=== PATIENT | female | born 1995 | race Caucasian/White ===

== ENCOUNTER 2019-07-09 20:23 | Emergency (ER) | payer BC ==
[2019-07-09 20:51] VITALS: BP 130/78
[2019-07-09] MEDS ORDERED: Sulfamethox/Trimethoprim DS 800/160* TAB PO ONE ×2 (21:22→21:23)
--- NOTE | 2019-07-09 21:28 | UC ---
Complaint Female HPI - HPI Summary HPI Summary: 24-year-old woman comes in with a chief complaint of vulvar swelling around the urethra. This started yesterday. Is tender to palpation. She had a similar episode about a year ago and at the draining pus. No fevers no chills feels well otherwise. Has been able to urinate. No abnormal vaginal discharge no concern of STI. - History Of Current Complaint Chief Complaint: UCGU Stated Complaint: UTI Time Seen by Provider: 07/09/19 20:43 Hx Last Menstrual Period: 06/18/19 Pain Intensity: 6 - Allergies/Home Medications Allergies/Adverse Reactions: Allergies Allergy/AdvReac Type Severity Reaction Status Date / Time ciprofloxacin Allergy Unknown Verified 07/09/19 20:53 Reaction Details Home Medications: Home Medications Norgestimate-Ethinyl Estradiol [Ortho Tri-Cyclen 28 Tablet] 1 mg PO DAILY [History Confirmed 07/09/19] PMH/Surg Hx/FS Hx/Imm Hx Previously Healthy: Yes - Surgical History Surgical History: Yes Surgery Procedure, Year, and Place: tongue clip - Family History Known Family History: Positive: Non-Contributory - Social History Alcohol Use: Occasionally Substance Use Type: None Smoking Status (MU): Never Smoked Tobacco Review of Systems All Other Systems Reviewed And Are Negative: Yes Constitutional: Positive: Negative Skin: Positive: Other - see hpi Eyes: Positive: Negative ENT: Positive: Negative Respiratory: Positive: Negative Cardiovascular: Positive: Negative Gastrointestinal: Positive: Negative Genitourinary: Positive: Other - see hpi Motor: Positive: Negative Neurovascular: Positive: Negative Musculoskeletal: Positive: Negative Neurological: Positive: Negative Psychological: Positive: Negative Is Patient Immunocompromised?: No Physical Exam Triage Information Reviewed: Yes Appearance: Well-Appearing, No Pain Distress, Well-Nourished Vital Signs: Initial Vital Signs Temp 98.6 F 07/09/19 20:41 Pulse 78 07/09/19 20:41 Resp 16 07/09/19 20:41 BP 130/78 07/09/19 20:41 Pulse Ox 100 07/09/19 20:41 Vital Signs Reviewed: Yes Eye Exam: Normal Eyes: Positive: Conjunctiva Clear Neck: Positive: Supple Respiratory: Positive: No respiratory distress Pelvic Exam: Positive: Other - There is no over swelling just superior to the clitoris. It's 1 cm x 1 cm. Is tender to palpation. Mild erythema no streaking. Musculoskeletal: Positive: Strength Intact, ROM Intact Neurological: Positive: Alert Psychological: Positive: Age Appropriate Behavior Skin: Positive: Other - see pelvic exam Complaint Female Dx - Course Course Of Treatment: Patient presents with a vulvar abscess. We discussed incision and drainage. Patient prefers no I&D at this time prefers to treat with warm compresses and by mouth antibiotics. Patient is able to urinate. Will follow up with gynecology. - Differential Dx/Diagnosis Provider Diagnosis: Vulvar abscess Discharge ED - Sign-Out/Discharge Documenting (check all that apply): Patient Departure All imaging exams completed and their final reports reviewed: No Studies - Discharge Plan Condition: Stable Disposition: HOME Prescriptions: Sulfamethox/Trimethoprim DS* [Bactrim DS 800/160 TAB*] 1 tab PO BID #18 tab Patient Education Materials: Abscess (ED) Referrals: [facility] [Outside] [facility] [Provider Group] Gladys Gutiérrez MD [Medical Doctor] - Additional Instructions: FOLLOW UP WITH GYNECOLOGY. [facility] [address] [facility] [address] [place] [address] GET REEVALUATED SOONER IF WORSE; PAIN, FEVER, YOU FEEL ILL OR ANY QUESTIONS OR CONCERNS. - Billing Disposition and Condition Condition: STABLE Disposition: Home
== END 2019-07-09 21:35 | disposition home or self-care (01) ==
LOC: UCCORT 20:23
DX: N76.4 Abscess of vulva (principal); Z88.1 Allergy status to other antibiotic agents
CPT/HCPCS: 81003; 84702; 87086; 99202; A9270-GY; G0463